=== PATIENT | female | born 1950 | race Caucasian/White ===

== ENCOUNTER → 2020-05-29 | Outpatient (CLI) | payer OTHER ==
[~2020-05-29] MED LIST: ACID CONTROLLER10 MG PO; AMARYL4 MG PO; AUGMENTIN 875875 MG PO; BENICAR40 MG PO; CALCIUM; CENTRUM SILVER1 EAC4 PO; COZAAR 50 MG TA50 M2 PO; ESTRING1 EACH VAG; FEMARA2.5 MG PO; GLUCOPHAGE XR500 MG PO; GLUCOPHAGE500 MG PO; GLYBURIDE 5 MG T5 M1 PO; HYDROCHLOROT PO; HYDROCHLOROTHIA25 M1 PO; HYDROCHLOROTHIA25 M2 PO; IRON325 PO; LEVOFLOXACIN750 MG PO; MAXAIR AUTOHALE14 G1 INH; MAXAIR INH; MIRALAX17 GM PO; MIRALAX255 GM PO; MULTIVITAMINS PO; OMEGA-31000 M1 PO; OMEGA-31000 MG PO; PROAIR HFA8.5 GM INH; PROBIOTIC1 EAC1 PO; SINGULAIR 10 MG10 M1 PO; VICTOZA0.6 MG/0.1 SUBQ; VITAMIN D1000 UNI1 PO; ZEGERID OTC 201 EACH PO; [UNRECOGNIZED DRUG - OTHER]; [UNRECOGNIZED DRUG - OTHER] VAG
== END ==
LOC: SJCVCIMAG 10:22
PROVIDERS: ATTEND Internal Medicine Cardiovascular Disease
DX: I51.7 Cardiomegaly (principal); R94.31 Abnormal electrocardiogram [ECG] [EKG]; E11.9 Type 2 diabetes mellitus without complications; E66.9 Obesity, unspecified